=== PATIENT | male | born 1955 | race Caucasian/White ===

== ENCOUNTER 2021-04-20 16:53 | Emergency (ER) | payer MEDICARE, OTHER, SELFPAY ==
[2021-04-20] VITALS (43 sets, daily range): BP systolic 80–105; BP diastolic 42–79; PULSE 64–83; RESP 7–26; TEMP 36.6–36.8; O2SAT 97–100; BMI 23.8
[2021-04-20 17:21] LABS: Add Manual Diff / Slide Review NO; Basophils Absolute Auto 100 /uL (0-100); Basophils Percent Auto 0.4 % (0-2); Eosinophils Absolute Auto 100 /uL (0-450); Eosinophils Percent Auto 0.4 % (2-4); Hematocrit 23.7 % (41-53); Hemoglobin 7.9 g/dL (13.5-17.5); Lymphocytes Absolute Auto 4600 /uL (1100-4500); Mean Corpuscular HGB Conc 33.1 % (30-36); Mean Corpuscular Hemoglobin 32.9 PG (26-34); Mean Corpuscular Volume 99.6 fL (80-100); Monocytes Absolute Auto 2600 /uL (0-900); Monocytes Percent Auto 12.4 % (3-14); Neutrophils Absolute Auto 13600 /uL (1500-7000); Neutrophils Percent Auto 64.8 % (50-75); Platelet Count 236 X10^3/uL (150-400); Red Blood Cell Count 2.38 X10^6/uL (4.5-5.9); Red Cell Distribution Width 15.9 % (11.6-14.8)
[2021-04-20 17:26] LABS: Alanine Aminotransferase 26 IU/L (<50); Albumin 3.5 g/dL (3.5-5.0); Albumin Globulin Ratio 1.5 (1.0-2.8); Alkaline Phosphatase 49 U/L (38-126); Aspartate Aminotransferase 28 IU/L (17-59); BUN Creatinine Ratio 52.2 (6-22); Bilirubin Total 0.4 mg/dL (0.2-1.3); Blood Urea Nitrogen 70 mg/dL (9-20); Calcium 10.1 mg/dL (8.4-10.2); Carbon Dioxide 21 mmol/L (22-32); Chloride 109 mmol/L (98-107); Estimated Glomerular Filt Rate 53.3 mL/min (>60); Globulin 2.3 g/dL (1.7-4.1); Glucose 204 mg/dL (80-110); HEMOLYSIS < 15 (0-50); Potassium 4.9 mmol/L (3.4-5.1); Sodium 137 mmol/L (137-145); Total Protein 5.8 g/dL (6.3-8.2)
--- NOTE | 2021-04-20 18:15 | ED_ITS ---
HPI - GI Bleed General Chief complaint: GI Bleed Stated complaint: Hypertension, GI bleed Time Seen by Provider: 04/20/21 17:57 Source: patient and EMS Mode of arrival: EMS History of Present Illness HPI Narrative: Patient is a 65-year-old male with history of GI bleed esophageal varices and former alcohol abuse who presents with 2 days of GI bleeding. He states that he has had multiple episodes of black stool. He is dizzy and lightheaded when he stands. He is followed by GI at [facility] he has had EGDs and colonoscopies multiple times in the past his esophageal varices have been repaired, it appears in August of 2020. He has not had any nausea or vomiting in the last 2 days. He denies any chest pain or shortness of breath. No significant abdominal pain. He feels like every time he bears down or stands or moves he has a bowel movement Related Data Allergies Allergy/AdvReac Type Severity Reaction Status Date / Time No Known Drug Allergies Allergy Verified 04/20/21 19:06 Review of Systems Review of Systems ROS Unobtainable: All systems reviewed & are unremarkable except as noted in HPI and below Constitutional Constitutional: Denies chills, Reports fatigue and Denies fever(s) Eyes Eyes: Denies blurry vision ENT Ears, Nose, Mouth, and Throat: Reports dizziness Cardiovascular Cardiovascular: Denies chest pain, Denies syncope, Denies irregular heart rhythm and Reports lightheadedness Respiratory Respiratory: Denies chest congestion and Denies cough Gastrointestinal Gastrointestinal: Reports as per HPI Genitourinary Genitourinary: Denies urinary frequency and Denies urinary hesitancy Musculoskeletal Musculoskeletal: Denies arthralgias and Denies myalgias Integumentary/Breasts Skin/Breast: Denies rash Neurologic Neurologic: Reports dizziness and Denies syncope Endocrine Endocrine: Reports fatigue Patient History Social History Smoking Status: Never smoker Smoking Status: Never smoker alcohol intake frequency: 0-2 drinks per day Substance Use Type: does not use Exam Initial Vital Signs Initial Vital Signs: Vital Signs Temperature 98.1 F 04/20/21 17:01 Pulse Rate 76 04/20/21 17:01 Respiratory Rate 16 04/20/21 17:01 Blood Pressure 104/51 L 04/20/21 17:01 Pulse Oximetry 99 04/20/21 17:01 GENERAL: Alert 65-year-old male and in no acute distress. HEENT: Head atraumatic,EOMI, pupils reactive, face symmetric, moist mucous membranes CARDIOVASCULAR: Regular rate and rhythm without murmurs, rubs or gallops. RESPIRATORY: Breath sounds equal bilaterally, no wheezes rales or rhonchi. ABDOMEN: Soft, nontender. Normoactive bowel sounds all 4 quadrants. No guarding or rebound. RECTAL: Dark stool Hemoccult-positive EXTREMITIES: Normal range of motion, no clubbing or edema. Neurovascularly intact NEUROLOGICAL: Alert and oriented x4.Normal gait and speech. SKIN: Warm, dry, no laceration, no petechiae, no rashes or lesions. Procedures Central Line Placement Right IJ: Time Out Performed: Yes Patient Placed on Monitor/Pulse Ox: Yes MD Prep: mask, gown, gloves and other Central Line Prep: Chlorhexidine scrub and sterile drapes applied Local Anesthetic: lidocaine 1% Amount of anesthesia used (mL): 5 Ultrasound Used for Placement: Yes Central Line Lumen Inserted: triple Post Procedure: sutured in place, good blood return, all ports aspirated, flushed, capped and sterile dressing applied Post Procedure X-Ray: tip of catheter in good position, no pneumothorax seen and other Patient Tolerated Procedure: Well Complications: none Course Orders Ordered: ED Orders 04/20/21 17:00 Complete Blood Count AUTO DIFF Stat Comprehensive Metabolic Panel Stat Packed Cells Stat Troponin & CK Cardiac Panel Stat Type and Screen Stat 04/20/21 19:00 Partial Thromboplastin Time Stat Prothrombin Time INR Stat 04/20/21 19:20 Lactate (Lactic Acid) Stat 04/20/21 19:34 COVID19 -Nasal swab/Pre-Proc Stat 04/20/21 21:22 XR chest 1V Stat 04/20/21 21:56 EKG-12 Lead Stat Discontinued Medications Octreotide Acetate 500 mcg/ (Sodium Chloride) 101 mls @ 5.05 mls/hr IV CONT HAYLEY; Protocol Last Infusion: 04/20/21 23:13 Dose: 0 mcg/hr, 0 mls/hr Documented by: Admin: 04/20/21 19:12 Dose: 25 mcg/hr, 5.05 mls/hr Documented by: LAURENT Ciprofloxacin (Cipro) 400 mg in 200 mls @ 200 mls/hr IV NOW ONE Stop: 04/20/21 22:50 Last Infusion: 04/20/21 23:20 Dose: 0 mls/hr Documented by: Admin: 04/20/21 22:06 Dose: 200 mls/hr Documented by: LAURENT Norepinephrine Bitartrate 4 mg (/ Dextrose) 254 mls @ 30.48 mls/hr IV TITRATE HAYLEY; Protocol Last Titration: 04/20/21 23:12 Dose: 0 mcg/min, 0 mls/hr Documented by: Admin: 04/20/21 22:42 Dose: 5 mcg/min, 19.05 mls/hr Documented by: GREGG Octreotide Acetate (Octreotide 100 Mcg/Ml Vial) 50 mcg IV NOW ONE Stop: 04/20/21 18:55 Last Admin: 04/20/21 19:09 Dose: 50 mcg Documented by: LAURENT Pantoprazole Sodium (Pantoprazole 40 Mg Vial) 40 mg IV NOW ONE Stop: 04/20/21 18:15 Last Admin: 04/20/21 19:10 Dose: 40 mg Documented by: LAURENT Pantoprazole Sodium (Pantoprazole 40 Mg Vial) 40 mg IV NOW ONE Stop: 04/20/21 21:52 Last Admin: 04/20/21 22:03 Dose: 40 mg Documented by: LAURENT Vital Signs Vital signs: Vital Signs - 8 hr 04/20/21 17:01 04/20/21 17:12 04/20/21 17:15 Temperature 98.1 F Pulse Rate 76 68 72 Respiratory Rate 16 12 14 Blood Pressure 104/51 L 101/49 L Pulse Oximetry 99 100 99 04/20/21 17:30 04/20/21 17:45 04/20/21 18:00 Temperature Pulse Rate 77 72 74 Respiratory Rate 10 L 14 12 Blood Pressure 94/52 L 98/54 L 95/52 L Pulse Oximetry 99 99 99 04/20/21 18:15 04/20/21 18:30 04/20/21 18:38 Temperature Pulse Rate 75 73 78 Respiratory Rate 17 14 20 Blood Pressure 98/56 L 89/51 L 92/55 L Pulse Oximetry 98 97 98 04/20/21 18:45 04/20/21 19:00 04/20/21 19:04 Temperature Pulse Rate 75 75 75 Respiratory Rate 12 14 23 Blood Pressure 105/53 L 84/45 L 85/50 L Pulse Oximetry 98 100 99 04/20/21 19:15 04/20/21 19:19 04/20/21 19:21 Temperature 98.3 F Pulse Rate 72 74 74 Respiratory Rate 11 L 11 L 20 Blood Pressure 85/50 L 81/50 L 81/50 L Pulse Oximetry 100 100 04/20/21 19:28 04/20/21 19:30 04/20/21 19:40 Temperature 98.3 F Pulse Rate 72 75 73 Respiratory Rate 11 L 14 16 Blood Pressure 88/51 L 89/52 L 82/49 L Pulse Oximetry 100 100 04/20/21 19:41 04/20/21 19:42 04/20/21 19:45 Temperature Pulse Rate 74 73 74 Respiratory Rate 15 13 10 L Blood Pressure 81/51 L 82/49 L 80/50 L Pulse Oximetry 100 100 100 04/20/21 19:51 04/20/21 20:00 04/20/21 20:15 Temperature Pulse Rate 64 73 69 Respiratory Rate 7 L 10 L 11 L Blood Pressure 99/51 L 92/42 L 88/51 L Pulse Oximetry 98 99 100 04/20/21 20:30 04/20/21 20:45 04/20/21 20:53 Temperature 98.2 F Pulse Rate 72 73 75 Respiratory Rate 12 14 16 Blood Pressure 82/44 L 81/48 L 95/53 L Pulse Oximetry 98 98 98 04/20/21 21:00 04/20/21 21:04 04/20/21 21:06 Temperature 98.3 F Pulse Rate 83 78 74 Respiratory Rate 26 H 22 16 Blood Pressure 104/53 L 104/53 L Pulse Oximetry 99 04/20/21 21:15 04/20/21 21:22 04/20/21 21:30 Temperature 98.3 F Pulse Rate 73 71 69 Respiratory Rate 17 15 10 L Blood Pressure 91/50 L 91/50 L 93/54 L Pulse Oximetry 98 99 04/20/21 21:45 04/20/21 21:50 04/20/21 22:00 Temperature Pulse Rate 70 72 71 Respiratory Rate 12 12 14 Blood Pressure 87/50 L 88/54 L 95/53 L Pulse Oximetry 98 98 99 04/20/21 22:15 04/20/21 22:24 04/20/21 22:30 Temperature 98.2 F Pulse Rate 75 73 73 Respiratory Rate 17 16 12 Blood Pressure 91/54 L 91/54 L 83/51 L Pulse Oximetry 98 97 04/20/21 22:45 04/20/21 23:00 04/20/21 23:01 Temperature 98 F Pulse Rate 74 73 76 Respiratory Rate 12 12 18 Blood Pressure 84/53 L 91/52 L 91/52 L Pulse Oximetry 97 98 04/20/21 23:15 Temperature 98.0 F Pulse Rate 79 Respiratory Rate 16 Blood Pressure 101/79 Pulse Oximetry MDM - GI Bleed Lab Data Result diagrams: 04/20/21 17:00 04/20/21 17:00 Labs: Lab Results 04/20/21 04/20/21 04/20/21 Range/Units 17:00 17:00 17:00 WBC 21.0 H (4.5-11.0) X10^3/uL RBC 2.38 L (4.5-5.9) X10^6/uL Hgb 7.9 L (13.5-17.5) g/dL Hct 23.7 L (41-53) % MCV 99.6 (80-100) fL MCH 32.9 (26-34) PG MCHC 33.1 (30-36) % RDW 15.9 H (11.6-14.8) % Plt Count 236 (150-400) X10^3/uL Neut % (Auto) 64.8 (50-75) % Lymph % (Auto) 22.0 L (25-40) % [place] % (Auto) 12.4 (3-14) % Eos % (Auto) 0.4 L (2-4) % Baso % (Auto) 0.4 (0-2) % Neut # (Auto) 45587 H (0564-7998) /uL Lymph # (Auto) 4600 H (2493-6114) /uL [place] # (Auto) 2600 H (0-900) /uL Eos # (Auto) 100 (0-450) /uL Baso # (Auto) 100 (0-100) /uL PT (10.1-12.7) SECONDS INR (0.9-1.3) APTT (26.4-36.2) SECONDS Sodium 137 (137-145) mmol/L Potassium 4.9 (3.4-5.1) mmol/L Chloride 109 H (98-107) mmol/L Carbon Dioxide 21 L (22-32) mmol/L BUN 70 H (9-20) mg/dL Creatinine 1.34 H (0.66-1.25) mg/dL Estimated GFR 53.3 L (>60) mL/min BUN/Creatinine Ratio 52.2 H (6-22) Glucose 204 H (80-110) mg/dL Lactate (0.7-2.1) mmol/L Calcium 10.1 (8.4-10.2) mg/dL Total Bilirubin 0.4 (0.2-1.3) mg/dL AST 28 (17-59) IU/L ALT 26 (<50) IU/L Alkaline Phosphatase 49 (38-126) U/L Total Creatine Kinase (55-170) U/L CK-MB (CK-2) CK-MB (CK-2) Rel Index Troponin I (0.01-0.034) ng/mL Total Protein 5.8 L (6.3-8.2) g/dL Albumin 3.5 (3.5-5.0) g/dL Globulin 2.3 (1.7-4.1) g/dL Albumin/Globulin Ratio 1.5 (1.0-2.8) SARS-CoV-2 (PCR) (Negative) Blood Type A Positive Antibody Screen Negative Crossmatch See Detail 04/20/21 04/20/21 04/20/21 Range/Units 17:00 19:00 19:20 WBC (4.5-11.0) X10^3/uL RBC (4.5-5.9) X10^6/uL Hgb (13.5-17.5) g/dL Hct (41-53) % MCV (80-100) fL MCH (26-34) PG MCHC (30-36) % RDW (11.6-14.8) % Plt Count (150-400) X10^3/uL Neut % (Auto) (50-75) % Lymph % (Auto) (25-40) % [place] % (Auto) (3-14) % Eos % (Auto) (2-4) % Baso % (Auto) (0-2) % Neut # (Auto) (7558-9502) /uL Lymph # (Auto) (2207-4745) /uL [place] # (Auto) (0-900) /uL Eos # (Auto) (0-450) /uL Baso # (Auto) (0-100) /uL PT 14.9 H (10.1-12.7) SECONDS INR 1.3 (0.9-1.3) APTT 26 L (26.4-36.2) SECONDS Sodium (137-145) mmol/L Potassium (3.4-5.1) mmol/L Chloride (98-107) mmol/L Carbon Dioxide (22-32) mmol/L BUN (9-20) mg/dL Creatinine (0.66-1.25) mg/dL Estimated GFR (>60) mL/min BUN/Creatinine Ratio (6-22) Glucose (80-110) mg/dL Lactate 1.9 (0.7-2.1) mmol/L Calcium (8.4-10.2) mg/dL Total Bilirubin (0.2-1.3) mg/dL AST (17-59) IU/L ALT (<50) IU/L Alkaline Phosphatase (38-126) U/L Total Creatine Kinase 28 L (55-170) U/L CK-MB (CK-2) TNP CK-MB (CK-2) Rel Index TNP Troponin I < 0.012 (0.01-0.034) ng/mL Total Protein (6.3-8.2) g/dL Albumin (3.5-5.0) g/dL Globulin (1.7-4.1) g/dL Albumin/Globulin Ratio (1.0-2.8) SARS-CoV-2 (PCR) (Negative) Blood Type Antibody Screen Crossmatch 04/20/21 Range/Units 19:34 WBC (4.5-11.0) X10^3/uL RBC (4.5-5.9) X10^6/uL Hgb (13.5-17.5) g/dL Hct (41-53) % MCV (80-100) fL MCH (26-34) PG MCHC (30-36) % RDW (11.6-14.8) % Plt Count (150-400) X10^3/uL Neut % (Auto) (50-75) % Lymph % (Auto) (25-40) % [place] % (Auto) (3-14) % Eos % (Auto) (2-4) % Baso % (Auto) (0-2) % Neut # (Auto) (5378-5764) /uL Lymph # (Auto) (5516-3865) /uL [place] # (Auto) (0-900) /uL Eos # (Auto) (0-450) /uL Baso # (Auto) (0-100) /uL PT (10.1-12.7) SECONDS INR (0.9-1.3) APTT (26.4-36.2) SECONDS Sodium (137-145) mmol/L Potassium (3.4-5.1) mmol/L Chloride (98-107) mmol/L Carbon Dioxide (22-32) mmol/L BUN (9-20) mg/dL Creatinine (0.66-1.25) mg/dL Estimated GFR (>60) mL/min BUN/Creatinine Ratio (6-22) Glucose (80-110) mg/dL Lactate (0.7-2.1) mmol/L Calcium (8.4-10.2) mg/dL Total Bilirubin (0.2-1.3) mg/dL AST (17-59) IU/L ALT (<50) IU/L Alkaline Phosphatase (38-126) U/L Total Creatine Kinase (55-170) U/L CK-MB (CK-2) CK-MB (CK-2) Rel Index Troponin I (0.01-0.034) ng/mL Total Protein (6.3-8.2) g/dL Albumin (3.5-5.0) g/dL Globulin (1.7-4.1) g/dL Albumin/Globulin Ratio (1.0-2.8) SARS-CoV-2 (PCR) Negative (Negative) Blood Type Antibody Screen Crossmatch Point of Care Testing Stool Occult Blood Positive Imaging Data Chest x-ray: Radiologist's Impression: PROCEDURE: XR CHEST 1V INDICATIONS: central line placement TECHNIQUE: One view of the chest was acquired. COMPARISON: [facility], CR, XR CHEST 1 VIEW, 05/29/2019, 19:03. FINDINGS: Surgical changes and devices: A right internal jugular catheter is seen with tip projecting over the superior cavoatrial junction. Lungs and pleura: Lungs are clear. No pleural effusions or pneumothorax. Mediastinum: Mediastinal contours appear normal. Heart size is normal. Bones and chest wall: No suspicious bony lesions. Overlying soft tissues appear unremarkable. IMPRESSION: Right internal jugular catheter with tip at the superior cavoatrial junction. No pneumothorax. ECG Data Attestation: I personally reviewed and interpreted this ECG as follows: Prior ECG tracings: not available for review Interpretation: Normal sinus rhythm rate 72 p.r. interval 142 QRS [address] changes right bundle-branch block noted no priors to compare MDM Narrative Medical decision making narrative: Patient initial blood pressure systolic in the low 100s. Blood work returned with a hemoglobin 7.9 hematocrit of 23.7. Patient was initially given 1 L of normal saline. Patient's blood pressure then decreased into the 80s at which point blood off started being transfused. During 1st unit of blood transfusion blood pressure remained 80s to 90s. Decision for central line placement. Patient was agreeable to this procedure and procedure went easily without complication. 2nd unit of blood is transfused map remains above 65, but certainly low. The patient given Protonix his and started on an octreotide drip. In 5 hours in the emergency department patient had 1 bloody bowel movement in the ED, black and tarry. No nausea or vomiting. He is feeling better with blood and fluids. 1830 Dr. Hdz, a surgery, recommend transfer for varices. Multiple hospitals have been called for bed placement unfortunately all are not accepting. [place] Dr. Andersen hospitalist updated on patient's symptoms test results he happily accepts patient. Requests IV Cipro, troponin EKG and another 40 mg of Protonix. Critical Care Time Critical Care Time Critical Care Time: Yes Total Critical Care Time: 45 Attestation: The high probability of a clinically significant, sudden or life threatening deterioration of the [cardiovascular] system(s) required my full and direct attention, intervention and personal management. The aggregate critical care time was [45] minutes. This time is in addition to time spent performing reported procedures but includes the following: [x] Data Review and interpretation [x] Patient assessment and monitoring of vital signs [x] Documentation [x] Medication orders and management Discharge Plan Departure Patient Disposition: [facility] Clinical Impression: Acute GI bleeding, Esophageal varices, Diabetes
[2021-04-20] MEDS: OCTREOTIDE 100 MCG/ML VIAL 50 MCG IV (19:09)
[2021-04-20] MEDS: PANTOPRAZOLE 40 MG VIAL IV ×2 (19:10→22:03)
[2021-04-20] MEDS: OCTREOTIDE 500 MCG in SODIUM CHLORIDE 0.9% 100 ML 5.05 ML IV (19:12)
[2021-04-20 19:18] LABS: INR 1.3 (0.9-1.3); Prothrombin Time 14.9 SECONDS (10.1-12.7)
[2021-04-20 19:20] LABS: PTT Partial Thromboplastin Tim 26 SECONDS (26.4-36.2)
[2021-04-20 19:49] LABS: Lactate (Lactic Acid) 1.9 mmol/L (0.7-2.1)
[2021-04-20 20:22] LABS: COVID19 -Nasal RAPID Negative (Negative)
--- NOTE | 2021-04-20 21:22 | DI.RAD.S_ITS ---
PROCEDURE: XR CHEST 1V INDICATIONS: central line placement TECHNIQUE: One view of the chest was acquired. COMPARISON: [facility], , XR CHEST 1 VIEW, 05/29/2019, 19:03. FINDINGS: Surgical changes and devices: A right internal jugular catheter is seen with tip projecting over the superior cavoatrial junction. Lungs and pleura: Lungs are clear. No pleural effusions or pneumothorax. Mediastinum: Mediastinal contours appear normal. Heart size is normal. Bones and chest wall: No suspicious bony lesions. Overlying soft tissues appear unremarkable. IMPRESSION: Right internal jugular catheter with tip at the superior cavoatrial junction. No pneumothorax. Dictated by: Jay Jay Smith M.D. on 04/20/2021 at 21:34 Approved by: Jay Jay Smith M.D. on 04/20/2021 at 21:35
[2021-04-20 22:02] LABS: Creatine Kinase 28 U/L (55-170)
[2021-04-20] MEDS: CIPROFLOXACIN 400 MG/200 ML PIGGYBACK 200 MG IV (22:06)
[2021-04-20 22:15] LABS: Troponin I < 0.012 ng/mL (0.01-0.034)
[2021-04-20] MEDS: NOREPINEPHRINE 4 MG in DEXTROSE 5% IN WATER 250 ML 19.05 ML IV (22:42)
== END 2021-04-20 23:16 | disposition short-term general hospital (02) ==
PROVIDERS: Emergency Medicine; Emergency Provider Emergency Medicine
DX: K92.2 Gastrointestinal hemorrhage, unspecified (principal); I85.00 Esophageal varices without bleeding; E11.9 Type 2 diabetes mellitus without complications; R42 Dizziness and giddiness; Z20.822 Contact with and (suspected) exposure to COVID-19; Z49.01 Encounter for fitting and adjustment of extracorporeal dialysis catheter
CPT/HCPCS: 36415; 36430; 36573; 71045; 80053; 82272; 82550; 83605; 84484; 85025; 85610; 85730; 86850; 86900; 86901; 87635; 93005; 93010; 96365; 96366; 96368; 96375; 96376; 99284; 99291; C9803; P9016; C9113; J0744; J2354